=== PATIENT | female | born 1955 | race Caucasian/White ===

== ENCOUNTER → 2020-02-14 14:41 | Outpatient (BNVA) | payer OTHER, SELFPAY | PROVIDERS: Visit Provider Nurse Practitioner Family | DX: Z20.828 Contact with and (suspected) exposure to other viral communicable diseases (principal) | CPT/HCPCS: 87635 ==

== ENCOUNTER 2020-02-18 11:59 | Emergency (ER) | payer OTHER, SELFPAY ==
[2020-02-18] VITALS (7 sets, daily range): BP systolic 159; BP diastolic 97; PULSE 98–104; RESP 14; TEMP 37.1; O2SAT 87–95; BMI 35.5
--- NOTE | 2020-02-18 13:44 | XRR_ITS ---
PROCEDURE INFORMATION: Exam: XR Chest, 1 View Exam date and time: 02/18/2020 1:46 PM Age: 64 years old Clinical indication: Shortness of breath; Additional info: Covid TECHNIQUE: Imaging protocol: XR of the chest Views: 1 view. COMPARISON: No relevant prior studies available. FINDINGS: Lungs: Prominent bronchovascular markings and congestion right lower lobe Pleural space: Unremarkable. No pleural effusion. No pneumothorax. Heart/Mediastinum: Unremarkable. No cardiomegaly. Bones/joints: Unremarkable. XR/XR chest 1V portable [id number] IMPRESSION: 1. Prominent bronchovascular markings and interstitial congestion right lower lobe 2. Otherwise negative chest examination
[2020-02-18 14:06] LABS: Basophils % 0.5 %; Eosinophils % 0.5 %; Hematocrit 48.4 % (37.0-47.0); Hemoglobin 15.8 g/dL (11.5-15.3); Lymphocytes # 2.4 10^3/uL (0.8-4.8); Lymphocytes % 37.3 %; Mean Corpuscular HGB Conc 32.6 g/dL (30.0-36.0); Mean Corpuscular Hemoglobin 30.4 pg (28.0-34.0); Mean Corpuscular Volume 93.1 fL (81-99); Monocytes # 0.4 10^3/uL (0.2-0.9); Monocytes % 5.3 %; Neutrophils # 3.68 10^3/uL (1.8-7.7); Neutrophils % 56.1 %; Nucleated Red Blood Cells % 0 %; Platelet Count 211 10^3/cmm (130-400); Red Cell Distribution Width 13.5 % (12.1-15.1); White Blood Count 6.6 10^3/uL (4.0-10.0)
[2020-02-18 14:15] LABS: D Dimer <= 0.27 ug/mIFEU (0-0.59)
[2020-02-18 14:28] LABS: Lactic Sepsis W/Reflex 1.6 mmol/L (0.5-2.2)
[2020-02-18 14:38] LABS: Procalcitonin 0.03 ng/mL (0-0.5)
[2020-02-18 14:49] LABS: Alanine Aminotransferase 60 U/L (0-33); Albumin Level 4.3 g/dL (3.5-5.2); Alkaline Phosphatase 83 IU/L (35-105); Anion Gap 19.2 (5-19); Aspartate Amino Transferase 34 U/L (0-32); Blood Urea Nitrogen 13 mg/dL (8-23); Calcium 9.6 mg/dL (8.5-10.5); Carbon Dioxide 21 mmol/L (22-29); Chloride 98 mmol/L (98-107); Creatine Phosphokinase 74 U/L (26-192); Globulin 3.7 g/dL (1.3-4.6); Glomerular Filtration Rate 124.2 mL/min (90-130); Glucose 190 mg/dL (65-115); Osmolality Calculated 283 mOsm/kg (285-295); Potassium 4.2 mmol/L (3.5-5.1); Sodium 134 mmol/L (136-145); Total Bilirubin 0.2 mg/dL (0.15-1.2)
[2020-02-18 14:52] LABS: Influenza A by IFA Negative (Negative); Influenza B by IFA Negative (Negative)
--- NOTE | 2020-02-18 16:35 | W.ED.COVID ---
HPI - COVID General: Chief Complaint: COVID symptoms Stated Complaint: COVID+ ON WEDNESDAY, WORSENING SYMPTOMS Time Seen by Provider: 02/18/20 12:46 Source: patient Mode of arrival: ambulatory Limitations: no limitations Triage information: Has fever, cough or shortness of breath. Exposure to COVID + person last 14 days History of Present Illness: HPI Narrative: The patient is a 64 year old diabetic patient who was diagnosed with COVID 19 4 days ago. She states that she has been feeling worse over the last 4 days including worsening cough, shortness of breath. Cough is productive of greenish sputum. She has been checking her oxygen saturation at home and it was in the high 80's so she was advised to come in to the ED to be evaluated. MD complaint: known COVID positive Prior covid testing: yes, results known Prior testing date: 02/14/20 COVID 19 common symptoms: positive fever(s), chills, cough, productive cough, dyspnea, fatigue, body aches and loss of sense of smell and/or taste; negative non-productive cough, headache(s), throat pain, nasal congestion, nausea, vomiting or diarrhea COVID 19 other sytmptoms: positive requiring oxygen and lethargy; negative chest pressure, chest pain, pleuritic pain, requiring more oxygen, respiratory distress, cyanosis, confusion, new neurological complaints or other concerning symptoms Onset (ago): week(s) (1) Severity: severe Pertinent comorbid conditions: diabetes COVID Results: SARS-CoV-2 RNA (RT-PCR) Detected (NOT DETECTED) A 02/14/20 14:41 02/14/20 Review of Systems General: Reports: 10 or more systems reviewed and unremarkable except in HPI and below Const: Reports: fever(s), chills, body aches and fatigue Eyes: Denies: change in vision or blurry vision ENMT: Denies: throat pain or nasal congestion Card: Denies: chest pain Resp: Reports: dyspnea and productive cough; Denies: non-productive cough GI: Denies: nausea, vomiting or diarrhea : Denies: flank pain, difficulty voiding, dysuria, urinary frequency, urinary urgency or urinary hesitancy Musc: Denies: neck pain, back pain or extremity swelling Skin/Breast: Denies: rash, pruritus or erythema Neuro: Denies: headache(s) or confusion Endo: Denies: polyuria, polydipsia or tired all the time Physical Exam Const: COMMON NORMALS: no acute distress, average body habitus, patient oriented x3, no limitations, healthy appearing, alert and well nourished HENMT: COMMON NORMALS: normocephalic, atraumatic and moist oral mucous membranes HEAD & SCALP: normocephalic and atraumatic Neck/C-Spine: COMMON NORMALS: no meningeal signs and no JVD Resp: COMMON NORMALS: normal respiratory effort, No retractions, No use of accessory muscles, clear to auscultation bilaterally and percussion normal AUSCULTATION: clear to auscultation bilaterally PERCUSSION: percussion normal Cardio: COMMON NORMALS: no JVD, regular rate, regular rhythm, S1 normal heart sound present, S2 normal heart sound present, No gallops present (Cardio), No clicks present (Cardio), No murmurs present (Cardio), No rub (Cardio) and Peripheral pulses 2+ throughout RATE: regular rate RHYTHM: regular rhythm HEART SOUNDS: S1 normal heart sound present and S2 normal heart sound present PERIPHERAL PULSES: Peripheral pulses 2+ throughout GI: COMMON NORMALS: Normal to inspection, nondistended, normoactive bowel sounds present, Soft to palpation, non-tender, No hepatosplenomegaly present, no masses and no bruits PALPATION: Yes Soft to palpation and Yes No hepatosplenomegaly present Extremity: COMMON NORMALS: normal to inspection, full ROM, capillary refill normal, no calf tenderness and no pedal edema Neuro: COMMON NORMALS: patient oriented x3 SENSORIUM/ORIENTATION: Yes alert MENINGEAL SIGNS: Yes no meningeal signs Skin: COMMON NORMALS: no rashes or lesions noted, no wounds, turgor normal, no jaundice, no petechiae and no mottling GENERAL SKIN EXAM: no rashes or lesions noted and turgor normal Course ED course: Patient who was recently diagnosed with COVID-19 4 days ago, but she has been ill for about one week. She has been hypoxic at home and in the ED. I advised that she will benefit from hospital admission and systemic steroids. She however declines systemic steroids and absolutely denies hospital admission. She said she would like to speak with her primary care provider tomorrow and follow his advice. Advised her that there is a possibility that she may deteriorate before then and she voiced understanding but insisted on being discharged to follow-up with her primary care provider tomorrow. She however was willing to try oral azithromycin. Because she was hypoxic and needing oxygen, a home O2 eval was done and she qualified for oxygen. She was discharged home on home oxygen. Vital Signs: Vital signs: Vital Signs Temperature 98.7 F 02/18/20 12:21 Pulse Rate 98 02/18/20 16:30 Respiratory Rate 14 02/18/20 12:21 Blood Pressure 159/97 02/18/20 12:21 Pulse Oximetry 93 02/18/20 16:30 MDM - COVID MDM Narrative: Medical decision making narrative: Patient with COVID pneumonia and hypoxia. She is high risk as she is diabetic. I advised hospital admission or at least dexamethasone, but she declined both options and only opted for azithromycin and wants to discuss with her PCP tomorrow before further treatment is accepted by her. She is discharged home on home oxygen and azithromycin. She is to f/u with her PCP in the morning. She is not a candidate for Bamlanivimab as she is requiring oxygen. Medical Records: Attestation: I reviewed the patient's medical records. Lab Data: Attestation: I reviewed the patient's lab results. Labs: Lab Results 02/18/20 02/18/20 02/18/20 Range/Units 13:19 13:19 13:19 WBC 6.6 (4.0-10.0) 10^3/ uL RBC 5.20 (4.1-5.3) 10^6/u L Hgb 15.8 H (11.5-15.3) g/dL Hct 48.4 H (37.0-47.0) % MCV 93.1 (81-99) fL MCH 30.4 (28.0-34.0) pg MCHC 32.6 (30.0-36.0) g/dL RDW 13.5 (12.1-15.1) % Plt Count 211 (130-400) 10^3/c mm MPV 11.0 H (7.4-10.4) fL Neut % (Auto) 56.1 % Lymph % (Auto) 37.3 % [place] % (Auto) 5.3 % Eos % (Auto) 0.5 % Baso % (Auto) 0.5 % Neut # (Auto) 3.68 (1.8-7.7) 10^3/u L Lymph # (Auto) 2.4 (0.8-4.8) 10^3/u L [place] # (Auto) 0.4 (0.2-0.9) 10^3/u L Eos # (Auto) 0.0 (0.0-0.8) 10^3/u L Baso # (Auto) 0.0 (0.0-0.1) 10^3/u L Nucleated RBC % (a uto) 0 % Nucleated RBCs # 0.0 /100WBC D-Dimer <= 0.27 (0-0.59) ug/mIFE U Sodium 134 L (136-145) mmol/L Potassium 4.2 (3.5-5.1) mmol/L Chloride 98 (98-107) mmol/L Carbon Dioxide 21 L (22-29) mmol/L Anion Gap 19.2 H (5-19) BUN 13 (8-23) mg/dL Creatinine 0.5 (0.5-0.9) mg/dL GFR Calculation 124.2 (90-130) mL/min Glucose 190 H (65-115) mg/dL Calculated Osmolal ity 283 L (285-295) mOsm/k g Lactic Acid (0.5-2.2) mmol/L Calcium 9.6 (8.5-10.5) mg/dL Total Bilirubin 0.2 (0.15-1.2) mg/dL AST 34 H (0-32) U/L ALT 60 H (0-33) U/L Alkaline Phosphata se 83 (35-105) IU/L Creatine Kinase 74 (26-192) U/L C-Reactive Protein 6.0 H (0.0-4.9) mg/L Total Protein 8.0 (6.6-8.7) g/dL Albumin 4.3 (3.5-5.2) g/dL Globulin 3.7 (1.3-4.6) g/dL Procalcitonin 0.03 (0-0.5) ng/mL Influenza Type A A g (Negative) Influenza Type B A g (Negative) 02/18/20 02/18/20 Range/Units 13:19 14:18 WBC (4.0-10.0) 10^3/ uL RBC (4.1-5.3) 10^6/u L Hgb (11.5-15.3) g/dL Hct (37.0-47.0) % MCV (81-99) fL MCH (28.0-34.0) pg MCHC (30.0-36.0) g/dL RDW (12.1-15.1) % Plt Count (130-400) 10^3/c mm MPV (7.4-10.4) fL Neut % (Auto) % Lymph % (Auto) % [place] % (Auto) % Eos % (Auto) % Baso % (Auto) % Neut # (Auto) (1.8-7.7) 10^3/u L Lymph # (Auto) (0.8-4.8) 10^3/u L [place] # (Auto) (0.2-0.9) 10^3/u L Eos # (Auto) (0.0-0.8) 10^3/u L Baso # (Auto) (0.0-0.1) 10^3/u L Nucleated RBC % (a uto) % Nucleated RBCs # /100WBC D-Dimer (0-0.59) ug/mIFE U Sodium (136-145) mmol/L Potassium (3.5-5.1) mmol/L Chloride (98-107) mmol/L Carbon Dioxide (22-29) mmol/L Anion Gap (5-19) BUN (8-23) mg/dL Creatinine (0.5-0.9) mg/dL GFR Calculation (90-130) mL/min Glucose (65-115) mg/dL Calculated Osmolal ity (285-295) mOsm/k g Lactic Acid 1.6 (0.5-2.2) mmol/L Calcium (8.5-10.5) mg/dL Total Bilirubin (0.15-1.2) mg/dL AST (0-32) U/L ALT (0-33) U/L Alkaline Phosphata se (35-105) IU/L Creatine Kinase (26-192) U/L C-Reactive Protein (0.0-4.9) mg/L Total Protein (6.6-8.7) g/dL Albumin (3.5-5.2) g/dL Globulin (1.3-4.6) g/dL Procalcitonin (0-0.5) ng/mL Influenza Type A A g Negative (Negative) Influenza Type B A g Negative (Negative) Imaging Data: CXR: Attestation: I personally reviewed and interpreted this imaging study as follows: Radiologist's impression: [address] [address] XRay Report Signed Patient: Brooklyn Maravilla #: [id number] : 6Acct#:[id number] Age/Sex: 64 / FADM Date: 02/18/20 Loc: ERRoom/Bed: Attending Dr: Ordering Provider/Ordering MD: Erlin El MD, [facility] [place] Date of Service: 02/18/20 Procedure(s): XR chest 1V portable [id number] Accession Number(s): [id number] Report Number: [id number] PROCEDURE INFORMATION: Exam: XR Chest, 1 View Exam date and time: 02/18/2020 1:46 PM Age: 64 years old Clinical indication: Shortness of breath; Additional info: Covid TECHNIQUE: Imaging protocol: XR of the chest Views: 1 view. COMPARISON: No relevant prior studies available. FINDINGS: Lungs: Prominent bronchovascular markings and congestion right lower lobe Pleural space: Unremarkable. No pleural effusion. No pneumothorax. Heart/Mediastinum: Unremarkable. No cardiomegaly. Bones/joints: Unremarkable. XR/XR chest 1V portable [id number] IMPRESSION: 1. Prominent bronchovascular markings and interstitial congestion right lower lobe 2. Otherwise negative chest examination Dictated By:Jona Pearson Signed By:Junie Pearson Date/Time:02/18/201428 DD/ 142 COVID Results: SARS-CoV-2 RNA (RT-PCR) Detected (NOT DETECTED) A 02/14/20 14:41 02/14/20 Discharge Plan Discharge Patient Disposition: Home Clinical Impression: Hypoxia, Pneumonia due to 2019 novel coronavirus Condition: Stable Prescriptions: New azithromycin 250 mg tablet See Rx Instructions .ROUTE .COMPLEX Qty: 6 RF: 0 Continued ascorbic acid (vitamin C) 2,000 mg Tablet Extended Release 2,000 - 4,000 mg PO DAILY RF: 0 glimepiride 4 mg tablet 4 mg PO BEDTIME RF: 0 zinc 50 mg Capsule 50 mg PO DAILY RF: 0 pregabalin 75 mg capsule 75 mg PO BEDTIME RF: 0 Vitamin D3 125 mcg (5,000 unit) Tablet 250 mcg PO DAILY RF: 0 Discharge Orders: Discharge Order (Routine); Ordered 02/18/20 Ordered By: Erlin El Other Ambulatory Orders: DME: Oxygen (Order) Location: None Selected Ordered By: Erlin El Referrals: Sebastien Yanez DO [Referring] - 02/19/20 Discharge Diet: Usual diet Discharge Activity: Increase activity as tolerated Patient Instructions: Viral Pneumonia (ED), Hypoxia (ED) Activity Restrictions/Additional Instructions: Return for any new or worsening symptoms. Follow-up with your primary care provider tomorrow for further evaluation. Monitor your oxygen levels at home. If it continues to drop please return for evaluation. Take the medications as prescribed Coding Level of Care Code ED Manager [employer] for [employer] Fwd Exam Comprehensive
== END 2020-02-18 17:30 | disposition home or self-care (01) ==
PROVIDERS: Emergency Provider Family Medicine
DX: U07.1 COVID-19 (principal); J12.89 Other viral pneumonia; R09.02 Hypoxemia
CPT/HCPCS: 12345; 71045; 80053; 82550; 83605; 84145; 85025; 85378; 86140; 87804; 99282; 99283

== ENCOUNTER 2020-02-22 13:49 | Inpatient (IN) | payer MEDICARE, MEDICAID, SELFPAY ==
[2020-02-22] VITALS (8 sets, daily range): BP systolic 112–174; BP diastolic 70–98; PULSE 91–110; RESP 18–24; TEMP 36.5–37.1; O2SAT 88–100; BMI 37.1
--- NOTE | 2020-02-22 14:40 | XR_ITS ---
WS: [id number] Portable AP upright chest, 02/22/2020 Clinical Data: covid 19. hypoxia Comparison: Portable chest, 02/18/2020. Findings: The bilateral opacities have diminished slightly. The heart remains enlarged. No nodules or masses are seen. There are no effusions. No pneumothorax is present. The aortic arch and descending aorta are tortuous. There is a small calcification overlying the left greater tuberosity which may re present calcific bursitis or tendinitis. XR/XR chest 1V portable [id number] Impression: 1. Bilateral pulmonary opacities which may represent pneumonia and these are im proved slightly. 2. Cardiomegaly.
--- NOTE | 2020-02-22 14:44 | ED_ITS ---
HPI - COVID General: Chief Complaint: COVID symptoms Stated Complaint: sob/weakness/fatigue/covid + Feb 15 Time Seen by Provider: 02/22/20 14:08 Source: patient, family and old records reviewed Mode of arrival: ambulatory Limitations: no limitations Triage information: Has fever, cough or shortness of breath . Exposure to COVID + person last 14 days History of Present Illness: HPI Narrative: 64-year-old female patient with a history of diabetes mellitus and was seen in this emergency department 4 days ago for worsening symptoms of COVID-19. She had been ill for about 4 days prior to her last visit and was diagnosed at the primary care provider's office with COVID-19. She was noted to be hypoxic when she was seen in the ER and I attempted to admit her at that time but the patient refused and declined and wanted to see her primary care provider. She was however sent home with home oxygen at 2 L/min. The patient states that she initially felt a little better but from yesterday she started to feel worse again having increasing shortness of breath, body aches, weakness, chills. She does not think she has any fever now. complaint: known COVID positive COVID 19 common symptoms: positive chills, non-productive cough, dyspnea and body aches; negative fever(s), productive cough, headache(s), throat pain, nausea or vomiting COVID Results: SARS-CoV-2 RNA (RT-PCR) Detected (NOT DETECTED) A 02/14/20 14:41 02/14/20 Review of Systems General: Reports: 10 or more systems reviewed and unremarkable except in HPI and below Const: Reports: chills and body aches; Denies: fever(s) Eyes: Denies: change in vision or blurry vision ENMT: Denies: throat pain, enlarged tonsils, odynophagia, hoarseness, mouth pain or swelling of lips/tongue Card: Denies: palpitations, irregular heart rhythm, edema or swelling of feet/ankles Resp: Reports: dyspnea and non-productive cough; Denies: productive cough GI: Denies: abdominal pain, nausea or vomiting : Denies: flank pain, difficulty voiding, dysuria, urinary frequency, urinary urgency or urinary hesitancy Musc: Denies: neck pain, back pain or extremity swelling Skin/Breast: Denies: rash, pruritus or erythema Neuro: Denies: headache(s), numbness in extremities or weakness in extremities Endo: Denies: polyuria, polydipsia or tired all the time Physical Exam Const: COMMON NORMALS: no acute distress, average body habitus, patient oriented x3, no limitations, healthy appearing, alert and well nourished HENMT: COMMON NORMALS: normocephalic, atraumatic and moist oral mucous membranes HEAD & SCALP: normocephalic and atraumatic Eye: COMMON NORMALS: Equal, round and reactive pupils present, EOMs intact bilaterally, conjunctivae normal and no scleral icterus CONJUNCTIVA: Yes conjunctivae normal PUPIL: Yes Equal, round and reactive pupils present Neck/C-Spine: COMMON NORMALS: no meningeal signs and no JVD Resp: COMMON NORMALS: normal respiratory effort, No retractions, No use of accessory muscles, clear to auscultation bilaterally and percussion normal AUSCULTATION: clear to auscultation bilaterally PERCUSSION: percussion normal Cardio: COMMON NORMALS: no JVD, regular rate, regular rhythm, S1 normal heart sound present, S2 normal heart sound present, No gallops present (Cardio), No clicks present (Cardio), No murmurs present (Cardio), No rub (Cardio) and Peripheral pulses 2+ throughout RATE: regular rate RHYTHM: regular rhythm HEART SOUNDS: S1 normal heart sound present and S2 normal heart sound present PERIPHERAL PULSES: Peripheral pulses 2+ throughout GI: COMMON NORMALS: Normal to inspection, nondistended, normoactive bowel sounds present, Soft to palpation, non-tender, No hepatosplenomegaly present, no masses and no bruits PALPATION: Yes Soft to palpation and Yes No hepatosplenomegaly present Extremity: COMMON NORMALS: normal to inspection, full ROM, capillary refill normal, no calf tenderness and no pedal edema Neuro: COMMON NORMALS: patient oriented x3 SENSORIUM/ORIENTATION: Yes alert MENINGEAL SIGNS: Yes no meningeal signs Skin: COMMON NORMALS: no rashes or lesions noted, no wounds, turgor normal, no jaundice, no petechiae and no mottling GENERAL SKIN EXAM: no rashes or lesions noted and turgor normal Course ED course: 64 year old female with COVID pneumonia. She is requiring more oxygen that what she was discharged with a few days ago. She is more hypoxic. She was given the first dose of Remdesivir and dexamethasone in the ED and she is admitted for further evaluation and management. Consultations: Consultation #1: Discussed the patient with Dr. Garcia, hospitalist and he kindly accepted the patient to his service Time: 19:31 Vital Signs: Vital signs: Vital Signs Temperature 97.7 F 02/22/20 21:32 Pulse Rate 91 02/22/20 21:32 Respiratory Rate 22 H 02/22/20 21:32 Blood Pressure 174/98 02/22/20 21:32 Pulse Oximetry 94 02/22/20 21:32 MDM - COVID MDM Narrative: Medical decision making narrative: 64 year old female with worsening hypoxia. She has COVID pneumonia and was discharged from the ED with home oxygen because at the time she did not want to be admitted to the hospital. She has however deteriorated and is requiring more oxygen, now on 5 lpm from 2 lpm to maintain her saturations. She is admitted for further evaluation and management. Medical Records: Attestation: I reviewed the patient's medical records. Lab Data: Attestation: I reviewed the patient's lab results. Labs: Lab Results 02/22/20 02/22/20 02/22/20 Range/Units 14:42 16:00 16:00 WBC 6.8 (4.0-10.0) 10^3/ uL RBC 5.25 (4.1-5.3) 10^6/u L Hgb 15.8 H (11.5-15.3) g/dL Hct 48.4 H (37.0-47.0) % MCV 92.2 (81-99) fL MCH 30.1 (28.0-34.0) pg MCHC 32.6 (30.0-36.0) g/dL RDW 13.2 (12.1-15.1) % Plt Count 201 (130-400) 10^3/c mm MPV 11.8 H (7.4-10.4) fL Neut % (Auto) 56.8 % Lymph % (Auto) 35.5 % Mccormick % (Auto) 5.6 % Eos % (Auto) 1.3 % Baso % (Auto) 0.4 % Neut # (Auto) 3.86 (1.8-7.7) 10^3/u L Lymph # (Auto) 2.4 (0.8-4.8) 10^3/u L Mccormick # (Auto) 0.4 (0.2-0.9) 10^3/u L Eos # (Auto) 0.1 (0.0-0.8) 10^3/u L Baso # (Auto) 0.0 (0.0-0.1) 10^3/u L Nucleated RBC % (a uto) 0 % Nucleated RBCs # 0.0 /100WBC D-Dimer Cancelled Specimen Type Arterial Sample Site Radial, left ABG pH 7.40 (7.35-7.45) ABG pCO2 44.4 (35-45) mmHg ABG pO2 65.0 L (80.0-100.0) mmH g ABG HCO3 27.8 H (22-26) mmol/L ABG Base Excess 2.4 H (-2.0-2.0) mmol/ L Junior Test Pos Hematocrit 47.8 H (37-47) % O2 Delivery Device Nc O2 Liters/Min 5.0 % FiO2 40.0 % Specimen Drawn By Monro Diamond Expert ID Monro Sodium Potassium Chloride Carbon Dioxide Anion Gap BUN Creatinine GFR Calculation Glucose Calculated Osmolal ity Lactic Acid Calcium Total Bilirubin AST ALT Alkaline Phosphata se Troponin T Gen 5 n g/L C-Reactive Protein NT-Pro-B Natriuret Pep Total Protein Albumin Globulin Procalcitonin 02/22/20 02/22/20 02/22/20 Range/Units 16:00 16:00 16:00 WBC (4.0-10.0) 10^3/ uL RBC (4.1-5.3) 10^6/u L Hgb (11.5-15.3) g/dL Hct (37.0-47.0) % MCV (81-99) fL MCH (28.0-34.0) pg MCHC (30.0-36.0) g/dL RDW (12.1-15.1) % Plt Count (130-400) 10^3/c mm MPV (7.4-10.4) fL Neut % (Auto) % Lymph % (Auto) % Mccormick % (Auto) % Eos % (Auto) % Baso % (Auto) % Neut # (Auto) (1.8-7.7) 10^3/u L Lymph # (Auto) (0.8-4.8) 10^3/u L Mccormick # (Auto) (0.2-0.9) 10^3/u L Eos # (Auto) (0.0-0.8) 10^3/u L Baso # (Auto) (0.0-0.1) 10^3/u L Nucleated RBC % (a uto) % Nucleated RBCs # /100WBC D-Dimer Specimen Type Sample Site ABG pH (7.35-7.45) ABG pCO2 (35-45) mmHg ABG pO2 (80.0-100.0) mmH g ABG HCO3 (22-26) mmol/L ABG Base Excess (-2.0-2.0) mmol/ L Junior Test Hematocrit (37-47) % O2 Delivery Device O2 Liters/Min % FiO2 % Specimen Drawn By Diamond Expert ID Sodium Cancelled Potassium Cancelled Chloride Cancelled Carbon Dioxide Cancelled Anion Gap Cancelled BUN Cancelled Creatinine Cancelled GFR Calculation Cancelled Glucose Cancelled Calculated Osmolal ity Cancelled Lactic Acid Cancelled Calcium Cancelled Total Bilirubin Cancelled AST Cancelled ALT Cancelled Alkaline Phosphata se Cancelled Troponin T Gen 5 n g/L Cancelled C-Reactive Protein Cancelled NT-Pro-B Natriuret Pep Cancelled Total Protein Cancelled Albumin Cancelled Globulin Cancelled Procalcitonin Cancelled 02/22/20 02/22/20 02/22/20 Range/Units 16:50 16:50 16:50 WBC (4.0-10.0) 10^3/ uL RBC (4.1-5.3) 10^6/u L Hgb (11.5-15.3) g/dL Hct (37.0-47.0) % MCV (81-99) fL MCH (28.0-34.0) pg MCHC (30.0-36.0) g/dL RDW (12.1-15.1) % Plt Count (130-400) 10^3/c mm MPV (7.4-10.4) fL Neut % (Auto) % Lymph % (Auto) % Mccormick % (Auto) % Eos % (Auto) % Baso % (Auto) % Neut # (Auto) (1.8-7.7) 10^3/u L Lymph # (Auto) (0.8-4.8) 10^3/u L Mccormick # (Auto) (0.2-0.9) 10^3/u L Eos # (Auto) (0.0-0.8) 10^3/u L Baso # (Auto) (0.0-0.1) 10^3/u L Nucleated RBC % (a uto) % Nucleated RBCs # /100WBC D-Dimer 1.27 H Specimen Type Sample Site ABG pH (7.35-7.45) ABG pCO2 (35-45) mmHg ABG pO2 (80.0-100.0) mmH g ABG HCO3 (22-26) mmol/L ABG Base Excess (-2.0-2.0) mmol/ L Junior Test Hematocrit (37-47) % O2 Delivery Device O2 Liters/Min % FiO2 % Specimen Drawn By Diamond Expert ID Sodium 136 Potassium 4.2 Chloride 96 L Carbon Dioxide 24 Anion Gap 20.2 H BUN 16 Creatinine 0.7 GFR Calculation 84.2 L Glucose 129 H Calculated Osmolal ity 285 Lactic Acid 1.5 Calcium 9.3 Total Bilirubin 0.3 AST 44 H ALT 77 H Alkaline Phosphata se 81 Troponin T Gen 5 n g/L C-Reactive Protein 11.5 H NT-Pro-B Natriuret Pep 10 Total Protein 7.2 Albumin 4.2 Globulin 3.0 Procalcitonin 0.03 02/22/20 Range/Units 16:50 WBC (4.0-10.0) 10^3/ uL RBC (4.1-5.3) 10^6/u L Hgb (11.5-15.3) g/dL Hct (37.0-47.0) % MCV (81-99) fL MCH (28.0-34.0) pg MCHC (30.0-36.0) g/dL RDW (12.1-15.1) % Plt Count (130-400) 10^3/c mm MPV (7.4-10.4) fL Neut % (Auto) % Lymph % (Auto) % Mccormick % (Auto) % Eos % (Auto) % Baso % (Auto) % Neut # (Auto) (1.8-7.7) 10^3/u L Lymph # (Auto) (0.8-4.8) 10^3/u L Mccormick # (Auto) (0.2-0.9) 10^3/u L Eos # (Auto) (0.0-0.8) 10^3/u L Baso # (Auto) (0.0-0.1) 10^3/u L Nucleated RBC % (a uto) % Nucleated RBCs # /100WBC D-Dimer Specimen Type Sample Site ABG pH (7.35-7.45) ABG pCO2 (35-45) mmHg ABG pO2 (80.0-100.0) mmH g ABG HCO3 (22-26) mmol/L ABG Base Excess (-2.0-2.0) mmol/ L Junior Test Hematocrit (37-47) % O2 Delivery Device O2 Liters/Min % FiO2 % Specimen Drawn By Diamond Expert ID Sodium Potassium Chloride Carbon Dioxide Anion Gap BUN Creatinine GFR Calculation Glucose Calculated Osmolal ity Lactic Acid Calcium Total Bilirubin AST ALT Alkaline Phosphata se Troponin T Gen 5 n g/L 8 C-Reactive Protein NT-Pro-B Natriuret Pep Total Protein Albumin Globulin Procalcitonin Imaging Data: CXR: Attestation: I personally reviewed and interpreted this imaging study as follows: Radiologist's impression: [address] [address] XRay Report Signed Patient: Brooklyn Maravilla #: [id number] : 6Acct#:[id number] Age/Sex: 64 / FADM Date: 02/22/20 Loc: ERRoom/Bed: Attending Dr: Ordering Provider/Ordering MD: Erlin El MD, [facility] Date of Service: 02/22/20 Procedure(s): XR chest 1V portable [id number] Accession Number(s): [id number] Report Number: [id number] WS: [id number] Portable AP upright chest, 02/22/2020 Clinical Data: covid 19. hypoxia Comparison: Portable chest, 02/18/2020. Findings: The bilateral opacities have diminished slightly. The heart remains enlarged. No nodules or masses are seen. There are no effusions. No pneumothorax is present. The aortic arch and descending aorta are tortuous. There is a small calcification overlying the left greater tuberosity which may represent calcific bursitis or tendinitis. XR/XR chest 1V portable [id number] Impression: 1. Bilateral pulmonary opacities which may represent pneumonia and these are improved slightly. 2. Cardiomegaly. Dictated By:Elizabeth Allen MD Signed By:Elizabeth Allen MDSigned Date/Time:02/22/20 1501 DD/ 1459 CTA Chest: Radiologist's impression: [address] [place] [address] CT Scan Report Signed Patient: Brooklyn Maravilla #: [id number] : [id number]#:[id number] Age/Sex: 64 / FADM Date: 02/22/20 Loc: ERRoom/Bed: Attending Dr: Ordering Provider/Ordering MD: Erlin El MD, [facility] Date of Service: 02/22/20 Procedure(s): CT angio chest PE protcl [id number] Accession Number(s): [id number] Report Number: [id number] PROCEDURE INFORMATION: Exam: CT Angiography Chest With Contrast Exam date and time: 02/22/2020 6:12 PM Age: 64 years old Clinical indication: Shortness of breath; Additional info: SOB, covid + TECHNIQUE: Imaging protocol: Computed tomographic angiography of the chest with intravenous contrast. 3D rendering (Not supervised by radiologist): MIP and/or 3D reconstructed images were created by the technologist. Radiation optimization: All CT scans at this facility use at least one of these dose optimization techniques: automated exposure control; mA and/or kV adjustment per patient size (includes targeted exams where dose is matched to clinical indication); or iterative reconstruction. Contrast material: OMNI 350; Contrast volume: 77 ml; Contrast route: INTRAVENOUS (IV); COMPARISON: CR XR chest 1V portable [id number] 02/22/2020 2:43 PM RADIATION DOSE METRICS: Total DLP (mGy-cm): 576.26 FINDINGS: Pulmonary arteries: There is no pulmonary embolus. Aorta: Unremarkable. No aortic aneurysm. No aortic dissection. Lungs: Multifocal rounded mostly subpleural ground-glass opacities are noted in the lungs. There is no dense lobar consolidation. Pleural space: Unremarkable. No pneumothorax. No pleural effusion. Heart: The heart is enlarged. Mediastinal space: A small hiatal hernia is present. Lymph nodes: Unremarkable. No enlarged lymph nodes. Liver: There is a diffuse decrease in hepatic parenchymal density, consistent with fatty infiltration. Bones/joints: Unremarkable. No acute fracture. Soft tissues: Unremarkable. CT/CT angio chest PE protcl [id number] IMPRESSION: 1. There is no pulmonary embolus. 2. Multifocal rounded mostly subpleural ground-glass opacities are noted in the lungs. Commonly reported imaging features of COVID-19 pneumonia are present. Other processes such as influenza pneumonia and organizing pneumonia, as can be seen with drug toxicity and connective tissue disease, can cause a similar imaging pattern. (Reference: Harlan) REFERENCES: Harlan Li, et al., Radiological Society of [place] Expert Consensus Statement on Reporting Chest CT Findings Related to COVID-19. Endorsed by the Society of Thoracic Radiology, the [employer], and RSNA. Published June 14, 2019. Radiation Dose CTDIVOL = (mGy): DLP = 576.26 (mGy-cm) Dictated By:Anne-Marie Hood Signed By:Max Hood Date/Time:02/22/201900 DD/ 99 COVID Results: SARS-CoV-2 RNA (RT-PCR) Detected (NOT DETECTED) A 02/14/20 14:41 02/14/20 Discharge Plan Discharge Patient Disposition: Admitted As Inpatient Admit Provider: Kong Garcia Clinical Impression: Hypoxia, Pneumonia due to 2019 novel coronavirus Condition: Stable Coding Level of Care Code ED Telesales Professional for Chg Fwd Exam Comprehensive
[2020-02-22 14:56] LABS: Base Excess ABG 2.4 mmol/L (-2.0-2.0); HCO3 ABG 27.8 mmol/L (22-26)
[2020-02-22 14:57] LABS: Arterial Blood Gas Hematocrit 47.8 % (37-47); Blood Gas Drawn By MONRO; Oxygen Device NC
[2020-02-22 15:05] LABS: ABG PCO2 44.4 mmHg (35-45); Blood Gas Allen Test Pos; Blood Gas Operator Identificat MONRO; Blood Gas Sample Site Radial, left; Blood Gas Sample Type Arterial
[2020-02-22 16:17] LABS: Basophils % 0.4 %; Eosinophils # 0.1 10^3/uL (0.0-0.8); Eosinophils % 1.3 %; Hematocrit 48.4 % (37.0-47.0); Hemoglobin 15.8 g/dL (11.5-15.3); Lymphocytes # 2.4 10^3/uL (0.8-4.8); Lymphocytes % 35.5 %; Mean Corpuscular HGB Conc 32.6 g/dL (30.0-36.0); Mean Corpuscular Hemoglobin 30.1 pg (28.0-34.0); Mean Corpuscular Volume 92.2 fL (81-99); Mean Platelet Volume 11.8 fL (7.4-10.4); Monocytes # 0.4 10^3/uL (0.2-0.9); Monocytes % 5.6 %; Neutrophils # 3.86 10^3/uL (1.8-7.7); Neutrophils % 56.8 %; Nucleated Red Blood Cells % 0 %; Platelet Count 201 10^3/cmm (130-400); Red Blood Count 5.25 10^6/uL (4.1-5.3); Red Cell Distribution Width 13.2 % (12.1-15.1); White Blood Count 6.8 10^3/uL (4.0-10.0)
[2020-02-22] MEDS: dexamethasone 4 mg/mL INJ 6 MG IVP (16:30)
[2020-02-22 17:18] LABS: Lactic Sepsis W/Reflex 1.5 mmol/L (0.5-2.2)
[2020-02-22 17:22] LABS: Troponin T (5th) Once 8 ng/L (0-10)
[2020-02-22 17:23] LABS: D Dimer 1.27 ug/mIFEU (0-0.59)
[2020-02-22 17:30] LABS: NT Pro B Type Natriuretic Pept 10 pg/mL (0-125); Procalcitonin 0.03 ng/mL (0-0.5)
[2020-02-22 17:41] LABS: Alanine Aminotransferase 77 U/L (0-33); Albumin Level 4.2 g/dL (3.5-5.2); Alkaline Phosphatase 81 IU/L (35-105); Aspartate Amino Transferase 44 U/L (0-32); Blood Urea Nitrogen 16 mg/dL (8-23); C Reactive Protein 11.5 mg/L (0.0-4.9); Calcium 9.3 mg/dL (8.5-10.5); Carbon Dioxide 24 mmol/L (22-29); Chloride 96 mmol/L (98-107); Creatinine Clr Calc Pharmacy 99.0923; Glomerular Filtration Rate 84.2 mL/min (90-130); Glucose 129 mg/dL (65-115); Osmolality Calculated 285 mOsm/kg (285-295); Sodium 136 mmol/L (136-145); Total Bilirubin 0.3 mg/dL (0.15-1.2); Total Protein 7.2 g/dL (6.6-8.7)
[2020-02-22 17:49] LABS: Anion Gap 20.2 (5-19); Potassium 4.2 mmol/L (3.5-5.1)
--- NOTE | 2020-02-22 17:51 | CTR_ITS ---
PROCEDURE INFORMATION: Exam: CT Angiography Chest With Contrast Exam date and time: 02/22/2020 6:12 PM Age: 64 years old Clinical indication: Shortness of breath; Additional info: SOB, covid + TECHNIQUE: Imaging protocol: Computed tomographic angiography of the chest with intravenous contrast. 3D rendering (Not supervised by radiologist): MIP and/or 3D reconstructed images were created by the technologist. Radiation optimization: All CT scans at this facility use at least one of these dose optimization techniques: automated exposure control; mA and/or kV adjustment per patient size (includes targeted exams where dose is matched to clinical indication); or iterative reconstruction. Contrast material: OMNI 350; Contrast volume: 77 ml; Contrast route: INTRAVENOUS (IV); COMPARISON: CR XR chest 1V portable [id number] 02/22/2020 2:43 PM RADIATION DOSE METRICS: Total DLP (mGy-cm): 576.26 FINDINGS: Pulmonary arteries: There is no pulmonary embolus. Aorta: Unremarkable. No aortic aneurysm. No aortic dissection. Lungs: Multifocal rounded mostly subpleural ground-glass opacities are noted in the lungs. There is no dense lobar consolidation. Pleural space: Unremarkable. No pneumothorax. No pleural effusion. Heart: The heart is enlarged. Mediastinal space: A small hiatal hernia is present. Lymph nodes: Unremarkable. No enlarged lymph nodes. Liver: There is a diffuse decrease in hepatic parenchymal density, consistent with fatty infiltration. Bones/joints: Unremarkable. No acute fracture. Soft tissues: Unremarkable. CT/CT angio chest PE protcl [id number] IMPRESSION: 1. There is no pulmonary embolus. 2. Multifocal rounded mostly subpleural ground-glass opacities are noted in the lungs. Commonly reported imaging features of COVID-19 pneumonia are present. Other processes such as influenza pneumonia and organizing pneumonia, as can be seen with drug toxicity and connective tissue disease, can cause a similar imaging pattern. (Reference: Harlan) REFERENCES: Harlan Li, et al., Radiological Society of [place] Expert Consensus Statement on Reporting Chest CT Findings Related to COVID-19. Endorsed by the Society of Thoracic Radiology, the [employer], and RSNA. Published June 14, 2019. Radiation Dose CTDIVOL = (mGy): DLP = 576.26 (mGy-cm)
[2020-02-22] MEDS: iohexol 350 mg/mL 100 mL Btl IV (18:52)
[2020-02-22] MEDS: morphine 4 mg/mL SDV 1 mL IVP (18:59)
[2020-02-22] MEDS: ondansetron 2 mg/ML SDV 2 mL 4 MG IVP (19:01)
--- NOTE | 2020-02-22 19:41 | PC.NURSE ---
upon entering room at 1925 patient found to be sitting on chair without BP cuff, pulse oximeter, or oxygen she states I will not cooperate unless I am comfortable, commode provided, longer o2 tubing for NC provided patient placed in gown larger BP cuff placed, patient given education on need for cooperation with tx in order to regain health, also on plan for admission, she is agreeable at this time.
--- NOTE | 2020-02-22 21:00 | P.HP_ITS ---
Providers/Chief Complaint Admitting Physician: Kong Garcia MD Chief Complaint: sob/weakness/fatigue/covid + Feb 15 History of Present Illness Brooklyn Maravilla is a 64 year old female with past medical history of diabetes ,was seen in this emergency department 4 days ago for worsening symptoms of COVID-19. She had been ill for about 4 days prior to her last visit and was diagnosed at the primary care provider's office with COVID-19. She was noted to be hypoxic when she was seen in the ER she was asked to be admitted at that time but the patient refused and declined and wanted to see her primary care provider. She was however sent home with home oxygen at 2 L/min. The patient states that she initially felt a little better but from yesterday she started to feel worse again having increasing shortness of breath, body aches, weakness, chills, subjective fever. She denies any loss of smell, taste, appetite. ECA: Course: Imaging study: CTA chest: There is no pulmonary embolus. Multifocal rounded mostly subpleural ground-glass opacities are noted in the lungs. Commonly reported imaging features of COVID-19 pneumonia are present. Pertinent labs: D-dimer: 1.27, CRP: 11.5 troponin: 8 proBNP: 10 WBC: 6.8, H&H: 15.8/48.4 , platelet count: 201 ABG: pH: 7.40, PCO2: 44, PO2: 65 FiO2: 40 %, PF ratio: 65/0.4 ECA medication: She was started on remdesivir as well as dexamethasone Review of Systems Const: Denies: change in appetite or diaphoresis Card: Denies: edema, swelling of feet/ankles or leg pain with exertion Resp: Denies: wheezing or pain on inspiration GI: Denies: abdominal pain, nausea, vomiting, diarrhea or constipation : Denies: flank pain Musc: Denies: back pain, extremity pain or extremity swelling Neuro: Denies: headache(s), difficulty walking or confusion Medications/Allergies Home Medications Medication Instructions Recorded Confirmed Last Taken Type azithromycin See Rx Instructions .ROUTE 02/18/20 02/22/20 02/22/20 09:00 Rx .COMPLEX #6 tab glimepiride 4 mg PO BEDTIME@21 02/18/20 02/22/20 02/21/20 History pregabalin 75 mg PO BEDTIME@02/18/20 02/22/20 02/21/20 History Bitter Melon Gold 500 mg PO DAILY 02/22/20 02/22/20 Unknown History Gymnema 1 tab PO DAILY 02/22/20 02/22/20 Unknown History L-Glutathione 250 mg PO DAILY 02/22/20 02/22/20 Unknown History Moringa Tabs 5,000 mg PO DAILY 02/22/20 02/22/20 Unknown History Quercetin 1,000 mg PO DAILY 02/22/20 02/22/20 Unknown History R-Alpha Lipoic Acid 1 tab PO DAILY 02/22/20 02/22/20 Unknown History Resveratrol Complex 500 mg PO DAILY 02/22/20 02/22/20 Unknown History Turmeric Curcumin 1,500 mg PO DAILY 02/22/20 02/22/20 Unknown History ascorbic acid (vitamin C) [Vitamin 2,000 - 4,000 mg PO DAILY@02/22/20 02/22/20 02/21/20 History C] cholecalciferol (vitamin D3) 5,000 - 10,000 unit PO DAILY@02/22/20 02/22/20 02/21/20 History [Vitamin D3] coenzyme Q10 [CoQ-10] 100 mg PO EVERY OTHER DAY 02/22/20 02/22/20 Unknown History vitamin B complex 1 tab PO DAILY@02/22/20 02/22/20 Unknown History vitamin E 100 unit PO DAILY@02/22/20 02/22/20 Unknown History zinc 50 mg PO DAILY@02/22/20 02/22/20 02/21/20 History Allergies Allergy/AdvReac Type Severity Reaction Status Date / Time No Known Allergies Allergy Verified 02/22/20 15:01 Vitals/I&O/Wt Last Vital Signs Temp 98.4 F 02/22/20 20:57 Pulse 96 02/22/20 20:57 Resp 18 02/22/20 20:57 BP 164/72 02/22/20 20:57 Pulse Ox 95 02/22/20 20:57 Weight last 48 hrs Weight 104.326 kg Physical Exam Const: COMMON NORMALS: patient oriented x3 HENMT: COMMON NORMALS: normocephalic, atraumatic, hearing grossly normal bilaterally and external ears normal HEAD & SCALP: normocephalic and atraumatic EXTERNAL EAR: Yes external ears normal Eye: COMMON NORMALS: no scleral icterus GENERAL EYE: appearance normal, both eyes and all related structures Chest: COMMONS NORMALS: normal inspection of the chest CHEST: Yes Symmetrical chest wall rise Resp: COMMON NORMALS: normal respiratory effort and clear to auscultation bilaterally EFFORT & INSPECTION: Yes symmetric chest movement AUSCULTATION : clear to auscultation bilaterally Cardio: COMMON NORMALS: regular rate, regular rhythm, S1 normal heart sound present, S2 normal heart sound present, No gallops present (Cardio), No murmurs present (Cardio), No rub (Cardio) and Peripheral pulses 2+ throughout RATE: regular rate RHYTHM: regular rhythm HEART SOUNDS: S1 normal heart sound present and S2 normal heart sound present PERIPHERAL PULSES: Peripheral pulses 2+ throughout GI: COMMON NORMALS: Normal to inspection, nondistended, normoactive bowel sounds present, Soft to palpation, non-tender, No hepatosplenomegaly present and no masses AUSCULTATION: Yes normoactive bowel sounds PALPATION: Yes Soft to palpation and Yes No hepatosplenomegaly present RECTAL EXAM: deferred Extremity: COMMON NORMALS: no clubbing, cyanosis or edema and no pedal edema Neuro: COMMON NORMALS: patient oriented x3 Data : 02/22/20 16:00 02/22/20 16:50 A&P Assessment and plan (1) Pneumonia due to COVID-19 virus: Currently on Covid protocol (REM, DEXA) Ceftriaxone 1 g IV daily Azithromycin 500 mg IV day Supplemental oxygen as needed Trend cytokine Gretel markers (namely D-dimer, ESR CRP, ferritin, IL-6) Status: Acute (2) Diabetes: Low-dose sliding scale insulin Fingerstick glucose Diabetic diet Status: Acute Additional A&P Information dvt ppx: Lovenox 40 mg SC daily Code status: Full code Disposition: Home Attestations Medical Necessity Statement*: Patient needs to be in hospital for management of Covid pneumonia. Anticipated length of stay greater than 2 midnights. Coding Level of Care Code Acute English Language Arts Teacher for Cristal Lowe Diagnoses Pneumonia due to COVID-19 virus U07.1; J12.89 Diabetes E11.9
[2020-02-22 21:53] LABS: Glucose Point of Care 276 mg/dL (70-110)
[2020-02-22] MEDS: acetaminophen 325 mg Tablet 650 MG PO (22:21)
[2020-02-22] MEDS: pregabalin 75 mg Capsule PO (22:21)
[2020-02-22] MEDS: enoxaparin 40 mg/0.4 mL Syringe SUBCUT (22:23)
[2020-02-22] MEDS: cefTRIAXone 1,000 MG in sodium chloride 0.9% (plus) 50 ML 100 MG IV (22:55)
[2020-02-22] MEDS: azithromycin 500 MG in sodium chloride 0.9% 250 ML 250 MG IV (23:21)
[2020-02-22] MEDS: sodium chloride 0.9% (100 ml) 100 ML 30 ML (23:21)
[2020-02-23] VITALS (11 sets, daily range): BP systolic 111–153; BP diastolic 67–87; PULSE 74–91; RESP 17–22; TEMP 36.5–36.7; O2SAT 90–96
--- NOTE | 2020-02-23 01:33 | PC.NURSE ---
Physician Contact Nurse noted hives on abdomen and right eyelid during physical assessment. Patient state she noticed the hives yesterday. She recently completed a course of azithromycin, but states she has not had a reaction to that medication in the past. Itching is worsening. Verbal order obtained from Dr. Garcia for benadryl po.
[2020-02-23] MEDS: diphenhydrAMINE 50 mg Capsule PO (02:14)
--- NOTE | 2020-02-23 06:00 | ECG_ITS ---
[facility] Test Date: 2020-02-23 Pat Name: Brooklyn Maravilla Department: Room: 269 Gender: Female Concrete Carpenter: : 1955 Requested By: Kong Garcia Order Number: [id number] Khan MD: Mayi Huff M.D. Measurements Intervals [place] Rate: 73 P: 55 [place]: 194 QRS: 25 QRSD: 101 T: 35 QT: 392 QTc: 434 Interpretive Statements SINUS RHYTHM No previous ECG available for comparison Electronically Signed On 02-23-2020 19:30:47 BUSINESS OFFICE MANAGER by Mayi Huff M.D. [id number]
[2020-02-23 06:12] LABS: Basophils % 0.3 %; Hematocrit 42.8 % (37.0-47.0); Hemoglobin 13.8 g/dL (11.5-15.3); Lymphocytes # 1.3 10^3/uL (0.8-4.8); Mean Corpuscular HGB Conc 32.2 g/dL (30.0-36.0); Mean Platelet Volume 10.9 fL (7.4-10.4); Monocytes # 0.2 10^3/uL (0.2-0.9); Monocytes % 4.3 %; Neutrophils # 2.01 10^3/uL (1.8-7.7); Neutrophils % 58.1 %; Nucleated Red Blood Cells % 0 %; Platelet Count 204 10^3/cmm (130-400); White Blood Count 3.5 10^3/uL (4.0-10.0)
[2020-02-23 06:31] LABS: D Dimer 0.88 ug/mIFEU (0-0.59)
[2020-02-23 06:46] LABS: Alanine Aminotransferase 62 U/L (0-33); Albumin Level 3.8 g/dL (3.5-5.2); Alkaline Phosphatase 68 IU/L (35-105); Anion Gap 12.4 (5-19); Aspartate Amino Transferase 33 U/L (0-32); Blood Urea Nitrogen 14 mg/dL (8-23); Carbon Dioxide 28 mmol/L (22-29); Chloride 103 mmol/L (98-107); Creatinine Clr Calc Pharmacy 149.6366; Glomerular Filtration Rate 124.2 mL/min (90-130); Glucose 194 mg/dL (65-115); Magnesium 1.9 mg/dL (1.7-2.3); Osmolality Calculated 294 mOsm/kg (285-295); Phosphorus 3.4 mg/dL (2.5-4.5); Potassium 4.4 mmol/L (3.5-5.1); Sodium 139 mmol/L (136-145); Thyroid Stimulating Hormone 0.94 uIU/mL (0.27-4.20); Total Bilirubin 0.2 mg/dL (0.15-1.2); Total Protein 6.8 g/dL (6.6-8.7)
[2020-02-23 06:52] LABS: INR 0.96 (0.8-1.2); Partial Thromboplastin Time 29.5 SECONDS (23.9-36.7)
[2020-02-23 06:59] LABS: Glucose Point of Care 157 mg/dL (70-110)
[2020-02-23] MEDS: zinc gluconate 50 mg Tablet PO (08:29)
[2020-02-23] MEDS: cholecalciferol (vitamin D3) 5,000 unit Tablet PO (08:29)
[2020-02-23] MEDS: famotidine 20 mg Tablet PO ×2 (08:29→17:10)
[2020-02-23 11:57] LABS: Glucose Point of Care 216 mg/dL (70-110)
--- NOTE | 2020-02-23 13:23 | P.PN_ITS ---
Subjective Subjective: Interval history: Patient was examined this morning, she tells me that she is overall feeling better, is on 2 L, would like to have some probiotics Vitals/I&O/Wt Last Vital Signs Temp 98.1 F 02/23/20 12:00 Pulse 79 02/23/20 12:00 Resp 18 02/23/20 12:00 BP 145/76 02/23/20 12:00 Pulse Ox 95 02/23/20 12:00 02/22/20 02/23/20 02/23/20 22:59 06:59 14:59 Intake Total 360 / 360 Output Total 120 / 120 1000 / 1120 400 / 400 Balance -120 / -120 -1000 / -1120 -40 / -40 Weight last 48 hrs Weight 119.522 kg Weight 104.326 kg Physical Exam Const: COMMON NORMALS: no acute distress and patient oriented x3 HENMT: COMMON NORMALS: normocephalic HEAD & SCALP: normocephalic Neck/C-Spine: COMMON NORMALS: no JVD Resp: COMMON NORMALS: normal respiratory effort, No retractions and No use of accessory muscles AUSCULTATION: wheezes Cardio: COMMON NORMALS: no JVD, regular rate, regular rhythm, S1 normal heart sound present and S2 normal heart sound present RATE: regular rate RHYTHM: regular rhythm HEART SOUNDS: S1 normal heart sound present and S2 normal heart sound present GI: COMMON NORMALS: Normal to inspection, nondistended, normoactive bowel sounds present, Soft to palpation, non-tender, No hepatosplenomegaly present, no masses and no bruits PALPATION: Yes Soft to palpation and Yes No hepatosplenomegaly present Extremity: COMMON NORMALS: capillary refill normal, no clubbing, cyanosis or edema, no calf tenderness and no pedal edema Neuro: COMMON NORMALS: patient oriented x3 Psych: COMMON NORMALS: mental status grossly normal Data : 02/23/20 05:52 02/23/20 05:52 A&P Assessment and plan (1) Pneumonia due to COVID-19 virus: Continue remdesivir Continue Decadron Monitor QTC daily, last QTC 434 ms Ceftriaxone 1 g IV daily Azithromycin 500 mg IV day Vitamin C, zinc Supplemental oxygen as needed Start probiotics Monitor blood sugars carefully as she is on Decadron Trend cytokine Gretel markers (namely D-dimer, ESR CRP, ferritin, IL-6) Lovenox for DVT prophylaxis, hypercoagulability prophylaxis, if her oxygen requirements increase or she becomes more short of breath will expand to full dose hypercoagulability Status: Acute (2) Diabetes: Low-dose sliding scale insulin Fingerstick glucose Diabetic diet Status: Acute Additional A&P Information dvt ppx: Lovenox 40 mg SC daily Code status: Full code Disposition: Home Attestations Medical Necessity Statement*: Patient requires hospitalization due to pneumonia secondary to COVID-19 Coding Level of Care Code Acute Patternmaker Pressure Cast for Cristal Lowe Diagnoses Pneumonia due to COVID-19 virus U07.1; J12.89 Diabetes E11.9
[2020-02-23 16:45] LABS: Glucose Point of Care 224 mg/dL (70-110)
[2020-02-23] MEDS: lactobacillus 1 Tablet 1 TAB PO (17:10)
[2020-02-23] MEDS: ascorbic acid 500 mg Tablet PO (17:10)
[2020-02-23] MEDS: fluconazole 100 mg Tablet 150 MG PO (19:13)
[2020-02-23 22:00] LABS: Glucose Point of Care 171 mg/dL (70-110)
[2020-02-23] MEDS: cefTRIAXone 1,000 MG in sodium chloride 0.9% (plus) 50 ML 100 MG IV (22:03)
[2020-02-23] MEDS: dexamethasone 4 mg/mL INJ 6 MG IVP (22:05)
[2020-02-23] MEDS: pregabalin 75 mg Capsule PO (22:10)
[2020-02-23] MEDS: enoxaparin 40 mg/0.4 mL Syringe SUBCUT (22:11)
[2020-02-23] MEDS: azithromycin 500 MG in sodium chloride 0.9% 250 ML 250 MG IV (23:40)
[2020-02-24] VITALS (10 sets, daily range): BP systolic 122–150; BP diastolic 71–87; PULSE 70–88; RESP 16–20; TEMP 36.4–36.7; O2SAT 91–95
--- NOTE | 2020-02-24 05:42 | PC.NURSE ---
SHIFT SUMMARY: THE PATIENT CONTINUES TO REQUIRE 4 LITERS OF OXYGEN NASAL CANULA. V/S WNL. DENIES ANY COMPLAINTS OF SOB OR DIFFICULTY BREATHING.
[2020-02-24 06:41] LABS: Basophils % 0.2 %; Hematocrit 42.2 % (37.0-47.0); Hemoglobin 13.4 g/dL (11.5-15.3); Lymphocytes % 18.3 %; Mean Corpuscular HGB Conc 31.8 g/dL (30.0-36.0); Mean Corpuscular Hemoglobin 29.6 pg (28.0-34.0); Mean Corpuscular Volume 93.2 fL (81-99); Mean Platelet Volume 10.9 fL (7.4-10.4); Monocytes # 0.1 10^3/uL (0.2-0.9); Monocytes % 1.5 %; Neutrophils # 4.18 10^3/uL (1.8-7.7); Neutrophils % 79.4 %; Nucleated Red Blood Cells % 0 %; Platelet Count 222 10^3/cmm (130-400); Red Blood Count 4.53 10^6/uL (4.1-5.3); Red Cell Distribution Width 13.1 % (12.1-15.1); White Blood Count 5.3 10^3/uL (4.0-10.0)
[2020-02-24 06:42] LABS: Alanine Aminotransferase 54 U/L (0-33); Albumin Level 3.9 g/dL (3.5-5.2); Alkaline Phosphatase 67 IU/L (35-105); Aspartate Amino Transferase 25 U/L (0-32); Blood Urea Nitrogen 18 mg/dL (8-23); Calcium 9.1 mg/dL (8.5-10.5); Carbon Dioxide 25 mmol/L (22-29); Chloride 102 mmol/L (98-107); Glomerular Filtration Rate 100.6 mL/min (90-130); Glucose 307 mg/dL (65-115); Magnesium 1.9 mg/dL (1.7-2.3); Osmolality Calculated 301 mOsm/kg (285-295); Phosphorus 3.8 mg/dL (2.5-4.5); Sodium 139 mmol/L (136-145); Total Bilirubin 0.2 mg/dL (0.15-1.2); Total Protein 6.9 g/dL (6.6-8.7)
[2020-02-24 06:49] LABS: Anion Gap 16.8 (5-19); Potassium 4.8 mmol/L (3.5-5.1)
--- NOTE | 2020-02-24 07:00 | XRR_ITS ---
PROCEDURE INFORMATION: Exam: XR Chest, 1 View Exam date and time: 02/24/2020 7:08 AM Age: 64 years old Clinical indication: Shortness of breath; Additional info: SOB TECHNIQUE: Imaging protocol: XR of the chest Views: 1 view. COMPARISON: CR XR chest 1V portable [id number] 02/22/2020 2:43 PM FINDINGS: Lungs: Bilateral interstitial pulmonary infiltrates are present along with patchy airspace consolidation in the left base. The left basilar infiltrates have become more prominent than on previous study and is consistent with pneumonia. Pleural space: Unremarkable. No pleural effusion. No pneumothorax. Heart/Mediastinum: Unremarkable. No cardiomegaly. Bones/joints: Unremarkable. XR/XR chest 1V portable [id number] IMPRESSION: Bilateral interstitial hazy infiltrates and patchy left basilar consolidation consistent with pneumonia. The left basilar infiltrate is more prominent than on previous study.
[2020-02-24 07:37] LABS: C Reactive Protein 5.2 mg/L (0.0-4.9)
[2020-02-24 07:48] LABS: Procalcitonin 0.02 ng/mL (0-0.5)
[2020-02-24 08:00] LABS: Creatine Phosphokinase 119 U/L (26-192)
[2020-02-24] MEDS: cholecalciferol (vitamin D3) 5,000 unit Tablet PO (08:15)
[2020-02-24] MEDS: lactobacillus 1 Tablet 1 TAB PO ×2 (08:15→17:37)
[2020-02-24] MEDS: famotidine 20 mg Tablet PO ×2 (08:16→17:37)
[2020-02-24] MEDS: ascorbic acid 500 mg Tablet PO ×2 (08:16→17:37)
[2020-02-24] MEDS: zinc gluconate 50 mg Tablet PO (08:16)
[2020-02-24] MEDS: FUROsemide 10 mg/mL SDV 4mL 40 MG IVP (10:06)
[2020-02-24 10:51] LABS: Glucose Point of Care 347 mg/dL (70-110)
--- NOTE | 2020-02-24 11:07 | PM.PN ---
Subjective Subjective: Interval history: Patient was examined this morning, she tells me she is doing well, but she gets quite winded tired and fatigued after minimal exertion such as getting up to use the bathroom Vitals/I&O/Wt Last Vital Signs Temp 97.9 F 02/24/20 08:00 Pulse 74 02/24/20 08:43 Resp 20 H 02/24/20 08:40 BP 149/87 02/24/20 08:00 Pulse Ox 93 02/24/20 08:40 02/23/20 02/24/20 02/24/20 22:59 06:59 14:59 Intake Total 240 / 600 240 / 840 720 / 720 Output Total 50 / 450 500 / 950 Balance 190 / 150 -260 / -110 720 / 720 Weight last 48 hrs Weight 122.924 kg Weight 119.522 kg Weight 104.326 kg Physical Exam Const: COMMON NORMALS: no acute distress and patient oriented x3 HENMT: COMMON NORMALS: normocephalic HEAD & SCALP: normocephalic Neck/C-Spine: COMMON NORMALS: no JVD Resp: COMMON NORMALS: normal respiratory effort, No retractions and No use of accessory muscles AUSCULTATION: crackles Cardio: COMMON NORMALS: no JVD, regular rate, regular rhythm, S1 normal heart sound present and S2 normal heart sound present RATE: regular rate RHYTHM: regular rhythm HEART SOUNDS: S1 normal heart sound present and S2 normal heart sound present GI: COMMON NORMALS: Normal to inspection, nondistended, normoactive bowel sounds present, Soft to palpation, non-tender, No hepatosplenomegaly present, no masses and no bruits PALPATION: Yes Soft to palpation and Yes No hepatosplenomegaly present Extremity: COMMON NORMALS: capillary refill normal, no clubbing, cyanosis or edema, no calf tenderness and no pedal edema Neuro: COMMON NORMALS: patient oriented x3 Psych: COMMON NORMALS: mental status grossly normal Data : 02/24/20 06:35 02/24/20 05:15 A&P Assessment and plan (1) Pneumonia due to COVID-19 virus: Continue remdesivir Continue Decadron Monitor QTC daily, last QTC 434 ms Ceftriaxone 1 g IV daily Azithromycin 500 mg IV day Vitamin C, zinc Supplemental oxygen as needed Start probiotics Monitor blood sugars carefully as she is on Decadron Trend cytokine Gretel markers (namely D-dimer, ESR CRP, ferritin, IL-6) As her oxygen requirements have increased, she feels continually short of breath, will expand Lovenox coverage to full dose, monitor hemoglobin closely 1 dose of Lasix today Status: Acute (2) Diabetes: Low-dose sliding scale insulin Fingerstick glucose Diabetic diet Status: Acute Additional A&P Information dvt ppx: Full dose Lovenox Code status: Full code Disposition: Home Plan for today monitor respiratory status closely, expand Lovenox to full dose, 1 dose of Lasix, get up out of bed, aggressive pulmonary toilet Attestations Medical Necessity Statement*: Patient requires hospitalization for pneumonia secondary COVID-19 Coding Level of Care Code Acute Porcelain Enamel Repairer for alan Lowe Diagnoses Pneumonia due to COVID-19 virus U07.1; J12.89 Diabetes E11.9
[2020-02-24] MEDS: enoxaparin 120 mg/0.8 mL Syringe SUBCUT ×2 (11:29→23:14)
[2020-02-24] MEDS: benzonatate 100 mg Capsule PO ×2 (11:49→20:30)
[2020-02-24] MEDS: guaiFENesin-dextromethorphan UDC 10 mL PO (11:49)
[2020-02-24 16:47] LABS: Glucose Point of Care 266 mg/dL (70-110)
[2020-02-24] MEDS: dexamethasone 4 mg/mL INJ 6 MG IVP (19:45)
[2020-02-24 19:54] LABS: Glucose Point of Care 277 mg/dL (70-110)
[2020-02-24] MEDS: acetaminophen 325 mg Tablet 650 MG PO (20:29)
[2020-02-24] MEDS: simethicone 80 mg Chew PO (20:29)
[2020-02-24] MEDS: pregabalin 75 mg Capsule PO (20:30)
[2020-02-24] MEDS: cefTRIAXone 1,000 MG in sodium chloride 0.9% (plus) 50 ML 100 MG IV (20:30)
[2020-02-24] MEDS: azithromycin 500 MG in sodium chloride 0.9% 250 ML 250 MG IV (21:16)
[2020-02-25] VITALS (9 sets, daily range): BP systolic 123–167; BP diastolic 75–89; PULSE 62–92; RESP 16–20; TEMP 36.4–37.2; O2SAT 91–96
[2020-02-25 05:42] LABS: Basophils % 0.2 %; Hematocrit 40.2 % (37.0-47.0); Hemoglobin 12.9 g/dL (11.5-15.3); Lymphocytes # 1.2 10^3/uL (0.8-4.8); Lymphocytes % 21.3 %; Mean Corpuscular HGB Conc 32.1 g/dL (30.0-36.0); Mean Corpuscular Hemoglobin 30.6 pg (28.0-34.0); Mean Corpuscular Volume 95.5 fL (81-99); Mean Platelet Volume 11.8 fL (7.4-10.4); Monocytes # 0.1 10^3/uL (0.2-0.9); Monocytes % 2.6 %; Neutrophils # 4.08 10^3/uL (1.8-7.7); Neutrophils % 75.3 %; Nucleated Red Blood Cells % 0 %; Platelet Count 232 10^3/cmm (130-400); Red Blood Count 4.21 10^6/uL (4.1-5.3); Red Cell Distribution Width 13.3 % (12.1-15.1); White Blood Count 5.4 10^3/uL (4.0-10.0)
--- NOTE | 2020-02-25 06:00 | ECG_ITS ---
[facility] Test Date: 2020-02-25 Pat Name: Brooklyn Maravilla Department: Room: 269 Gender: Female Foreman/Project Manager: : 1955 Requested By: Keshav Alejandro Order Number: [id number] Reading MD: SAVANNA CHAMORRO Measurements Intervals [place] Rate: 68 P: 52 [place]: 192 QRS: 25 QRSD: 100 T: 30 QT: 379 QTc: 405 Interpretive Statements SINUS RHYTHM Compared to ECG 02/23/2020 06:22:03 No significant changes Electronically Signed On 02-25-2020 15:48:19 AUTO SERVICE MECHANIC by SAVANNA CHAMORRO [id number]
[2020-02-25 06:44] LABS: Alanine Aminotransferase 53 U/L (0-33); Albumin Level 3.7 g/dL (3.5-5.2); Alkaline Phosphatase 62 IU/L (35-105); Anion Gap 15.8 (5-19); Aspartate Amino Transferase 22 U/L (0-32); Blood Urea Nitrogen 19 mg/dL (8-23); Calcium 8.9 mg/dL (8.5-10.5); Carbon Dioxide 28 mmol/L (22-29); Chloride 102 mmol/L (98-107); Globulin 2.5 g/dL (1.3-4.6); Glomerular Filtration Rate 100.6 mL/min (90-130); Glucose 297 mg/dL (65-115); Magnesium 1.9 mg/dL (1.7-2.3); Osmolality Calculated 305 mOsm/kg (285-295); Phosphorus 3.9 mg/dL (2.5-4.5); Potassium 4.8 mmol/L (3.5-5.1); Sodium 141 mmol/L (136-145); Total Bilirubin 0.2 mg/dL (0.15-1.2); Total Protein 6.2 g/dL (6.6-8.7)
[2020-02-25 06:45] LABS: C Reactive Protein 3.7 mg/L (0.0-4.9)
[2020-02-25 06:49] LABS: Glucose Point of Care 247 mg/dL (70-110)
[2020-02-25] MEDS: zinc gluconate 50 mg Tablet PO (08:01)
[2020-02-25] MEDS: guaiFENesin-dextromethorphan UDC 10 mL PO (08:01)
[2020-02-25] MEDS: famotidine 20 mg Tablet PO ×2 (08:01→17:59)
[2020-02-25] MEDS: benzonatate 100 mg Capsule PO (08:01)
[2020-02-25] MEDS: ascorbic acid 500 mg Tablet PO ×2 (08:01→17:59)
[2020-02-25] MEDS: lactobacillus 1 Tablet 1 TAB PO ×2 (08:01→17:59)
[2020-02-25] MEDS: cholecalciferol (vitamin D3) 5,000 unit Tablet PO (08:01)
[2020-02-25 08:55] LABS: Procalcitonin 0.04 ng/mL (0-0.5)
[2020-02-25 09:06] LABS: Creatine Phosphokinase 104 U/L (26-192)
--- NOTE | 2020-02-25 10:43 | PC.SOCIAL ---
IMM Update Pg. 2 of IMM updated with patient over the phone who verbalized understanding.
--- NOTE | 2020-02-25 10:49 | PM.PN ---
Subjective Subjective: Interval history: This morning patient was examined, she tells me that she is doing well, still on 4 L, she is just feeling quite anxious, she wants to go home, but she knows that she needs to be here, she is hoping to get something to settle her nerves, overall she feels better, but still feels a bit short of breath and weak with exertion Vitals/I&O/Wt Last Vital Signs Temp 97.8 F 02/25/20 08:00 Pulse 92 02/25/20 09:06 Resp 18 02/25/20 09:06 BP 150/83 02/25/20 08:00 Pulse Ox 94 02/25/20 09:06 02/24/20 02/25/20 02/25/20 22:59 06:59 14:59 Intake Total 1140 / 2100 120 / 2220 400 / 400 Output Total 1200 / 3000 700 / 700 Balance -60 / -900 120 / -780 -300 / -300 Weight last 48 hrs Weight 121.79 kg Weight 122.924 kg Physical Exam Const: COMMON NORMALS: no acute distress and patient oriented x3 HENMT: COMMON NORMALS: normocephalic HEAD & SCALP: normocephalic Neck/C-Spine: COMMON NORMALS: no JVD Resp: COMMON NORMALS: normal respiratory effort, No retractions, No use of accessory muscles and clear to auscultation bilaterally AUSCULTATION: clear to auscultation bilaterally Cardio: COMMON NORMALS: no JVD, regular rate, regular rhythm, S1 normal heart sound present and S2 normal heart sound present RATE: regular rate RHYTHM: regular rhythm HEART SOUNDS: S1 normal heart sound present and S2 normal heart sound present GI: COMMON NORMALS: Normal to inspection, nondistended, normoactive bowel sounds present, Soft to palpation, non-tender, No hepatosplenomegaly present, no masses and no bruits PALPATION: Yes Soft to palpation and Yes No hepatosplenomegaly present Extremity: COMMON NORMALS: capillary refill normal, no clubbing, cyanosis or edema, no calf tenderness and no pedal edema Neuro: COMMON NORMALS: patient oriented x3 Psych: COMMON NORMALS: mental status grossly normal Data : 02/25/20 05:00 02/25/20 05:00 A&P Assessment and plan (1) Pneumonia due to COVID-19 virus: Continue remdesivir Continue Decadron Monitor QTC daily, last QTC 405 ms Ceftriaxone 1 g IV daily Azithromycin 500 mg IV day Vitamin C, zinc Supplemental oxygen as needed Start probiotics Monitor blood sugars carefully as she is on Decadron Klonopin 0.25 twice daily for anxiety Trend cytokine Gretel markers (namely D-dimer, ESR CRP, ferritin, IL-6) Full dose Lovenox Hold off on Lasix today Status: Acute (2) Diabetes: Low-dose sliding scale insulin Fingerstick glucose Diabetic diet Status: Acute Additional A&P Information dvt ppx: Full dose Lovenox Code status: Full code Disposition: Home Plan for today monitor respiratory status closely, aggressive pulmonary toilet, get up out of bed, continue Decadron, continue antibiotics, continue remdesivir Attestations Medical Necessity Statement*: Patient requires hospitalization for COVID-19 pneumonia, Time Spent in Patient Care: Greater than 35 minutes (>than 50% of time spent in counselling and/or direct pt care on unit). Coding Level of Care Code Acute Speaking Unit Assembler for Cristal Lowe Diagnoses Pneumonia due to COVID-19 virus U07.1; J12.89 Diabetes E11.9
[2020-02-25] MEDS: amlodipine 10 mg Tablet PO (11:26)
[2020-02-25] MEDS: enoxaparin 120 mg/0.8 mL Syringe SUBCUT ×2 (11:26→23:02)
[2020-02-25 11:30] LABS: Glucose Point of Care 281 mg/dL (70-110)
[2020-02-25 17:18] LABS: Glucose Point of Care 269 mg/dL (70-110)
[2020-02-25 20:22] LABS: Glucose Point of Care 282 mg/dL (70-110)
[2020-02-25] MEDS: pregabalin 75 mg Capsule PO (20:37)
[2020-02-25] MEDS: CLONazepam 0.5 mg Tablet 0.25 MG PO (20:37)
[2020-02-25] MEDS: dexamethasone 4 mg/mL INJ 6 MG IVP (21:16)
[2020-02-25] MEDS: cefTRIAXone 1,000 MG in sodium chloride 0.9% (plus) 50 ML 100 MG IV (22:34)
[2020-02-25] MEDS: azithromycin 500 MG in sodium chloride 0.9% 250 ML 250 MG IV (23:02)
[2020-02-26] VITALS (11 sets, daily range): BP systolic 144–162; BP diastolic 77–90; PULSE 70–82; RESP 17–20; TEMP 36.4–36.8; O2SAT 94–98
[2020-02-26 06:34] LABS: Glucose Point of Care 262 mg/dL (70-110)
[2020-02-26 06:57] LABS: C Reactive Protein 2.6 mg/L (0.0-4.9)
[2020-02-26 07:05] LABS: Creatine Phosphokinase 89 U/L (26-192)
[2020-02-26] MEDS: albuterol 8 gm MDI 2 PUFF INHALATION (07:35)
[2020-02-26 08:04] LABS: Procalcitonin 0.02 ng/mL (0-0.5)
[2020-02-26] MEDS: ascorbic acid 500 mg Tablet PO ×2 (08:33→18:06)
[2020-02-26] MEDS: cholecalciferol (vitamin D3) 5,000 unit Tablet PO (08:33)
[2020-02-26] MEDS: lactobacillus 1 Tablet 1 TAB PO ×2 (08:34→18:06)
[2020-02-26] MEDS: zinc gluconate 50 mg Tablet PO (08:34)
[2020-02-26] MEDS: famotidine 20 mg Tablet PO ×2 (08:34→18:06)
--- NOTE | 2020-02-26 09:46 | PC.NURSE ---
pt refused her norvasc this am due to her saying she uses herbal supplements to regulate her blood pressure at home and that her primary care knows this and it usually runs a little high. i informed the pt on importance of taking blood pressure medications and risks of having a high blood pressure and it not being controlled, pt stated she is aware.
[2020-02-26 11:18] LABS: Glucose Point of Care 252 mg/dL (70-110)
[2020-02-26] MEDS: enoxaparin 120 mg/0.8 mL Syringe SUBCUT (12:03)
[2020-02-26 16:52] LABS: Glucose Point of Care 222 mg/dL (70-110)
--- NOTE | 2020-02-26 17:08 | PM.PN ---
Subjective Subjective: Interval history: stable 02 requirements at 4lpm today, reports feeling congested in her chest today, denies chest pain or dyspnea , afebrile, hemodynamically stable Medications: Reviewed: Yes Vitals/I&O/Wt Last Vital Signs Temp 97.7 F 02/26/20 16:00 Pulse 77 02/26/20 16:00 Resp 17 02/26/20 16:00 BP 162/87 02/26/20 16:00 Pulse Ox 98 02/26/20 16:00 02/26/20 02/26/20 02/26/20 06:59 14:59 22:59 Intake Total 300 / 1360 720 / 720 Output Total 1600 / 1600 Balance 300 / 60 -880 / -880 Weight last 48 hrs Weight 121.563 kg Weight 121.79 kg Physical Exam Narrative: EXAM NARRATIVE: GEN: Awake, alert and oriented, no acute distress CVS: S1S2 N RS: CTA B/L except crackles over RUL Abd: Soft, nt/nd , bs+ NUTRITIONAL SERVICES HOST: no focal neuro deficits Data : 02/25/20 05:00 02/25/20 05:00 A&P Assessment and plan (1) Pneumonia due to COVID-19 virus: Continue remdesivir, to complete 5 days tomorrow Continue Decadron Ceftriaxone 1 g IV daily Azithromycin 500 mg IV day Vitamin C, zinc Supplemental oxygen as needed, stable needs Klonopin 0.25 twice daily for anxiety Change Lovenox to prophylactic dose of 40 mg daily Status: Acute (2) Diabetes: Low-dose sliding scale insulin Fingerstick glucose Diabetic diet Status: Acute Additional A&P Information dvt ppx: Lovenox 40 Code status: Full code Disposition: Home Plan for today monitor respiratory status closely, aggressive pulmonary toilet, get up out of bed, continue Decadron, continue antibiotics, continue remdesivir Continues to improve over the next 24 hours will likely discharge after last dose of remdesivir. Attestations Medical Necessity Statement*: Complains of some chest tightness today, continue consider nebulization and spirometry, likely d/c tomorrow after complets 5 days of remdisivir Coding Level of Care Code Acute Office Manager Receptionist for [facility] Diagnoses Pneumonia due to COVID-19 virus U07.1; J12.89 Diabetes E11.9
[2020-02-26] MEDS: benzonatate 100 mg Capsule PO (18:09)
--- NOTE | 2020-02-26 18:38 | PC.NURSE ---
SHIFT SUMMARY THIS PT HAS HAD NO CHANGES THIS SHIFT. PT IS JUST REQUESTING THAT SHE GO HOME SOON.
[2020-02-26 20:44] LABS: Glucose Point of Care 281 mg/dL (70-110)
[2020-02-26] MEDS: acetaminophen 325 mg Tablet 650 MG PO (21:09)
[2020-02-26] MEDS: cefTRIAXone 1,000 MG in sodium chloride 0.9% (plus) 50 ML 100 MG IV (21:10)
[2020-02-26] MEDS: diphenhydrAMINE 50 mg Capsule PO (21:10)
[2020-02-26] MEDS: pregabalin 75 mg Capsule PO (21:10)
[2020-02-26] MEDS: azithromycin 500 MG in sodium chloride 0.9% 250 ML 250 MG IV (21:11)
[2020-02-26] MEDS: dexamethasone 4 mg/mL INJ 6 MG IVP (21:15)
[2020-02-27] VITALS: BP 126/69; PULSE 72; RESP 20; TEMP 36.4; O2SAT 96
[2020-02-27 03:18] VITALS: BP 133/81; PULSE 74; RESP 24; TEMP 36.5; O2SAT 95
--- NOTE | 2020-02-27 04:00 | XR_ITS ---
WS: [id number] PORTABLE CHEST HISTORY: f/up chest infiltrates COMPARISON: 02/24/2020 Mildly thickened interstitial markings. Patchy areas of opacifications have slightly improved since t he chest CT of 02/22/2020. New area of increasing opacification at the RIGHT lung base. No pleural eff usion or pneumothorax. Cardiac size: Normal. Mediastinum/Aorta: Normal mediastinum. No osseous abnormality seen. XR/XR chest 1V portable [id number] IMPRESSION: 1. Majority of the patchy opacifications have improved. 2. RIGHT lower lobe patchy opacification is slightly more prominent as compare d to prior studies.
[2020-02-27 04:56] LABS: Basophils % 0.3 %; Hematocrit 40.3 % (37.0-47.0); Lymphocytes # 1.3 10^3/uL (0.8-4.8); Lymphocytes % 21.4 %; Mean Corpuscular HGB Conc 32.3 g/dL (30.0-36.0); Mean Corpuscular Hemoglobin 30.2 pg (28.0-34.0); Mean Corpuscular Volume 93.7 fL (81-99); Mean Platelet Volume 11.7 fL (7.4-10.4); Monocytes # 0.1 10^3/uL (0.2-0.9); Monocytes % 1.8 %; Neutrophils # 4.52 10^3/uL (1.8-7.7); Neutrophils % 75.2 %; Nucleated Red Blood Cells % 0 %; Platelet Count 258 10^3/cmm (130-400); Red Cell Distribution Width 13.2 % (12.1-15.1)
[2020-02-27 05:16] LABS: C Reactive Protein 2.5 mg/L (0.0-4.9); Ferritin 425 ng/mL (15-150)
[2020-02-27 05:18] LABS: Alanine Aminotransferase 45 U/L (0-33); Albumin Level 3.8 g/dL (3.5-5.2); Alkaline Phosphatase 60 IU/L (35-105); Anion Gap 14.6 (5-19); Aspartate Amino Transferase 16 U/L (0-32); Blood Urea Nitrogen 23 mg/dL (8-23); Carbon Dioxide 27 mmol/L (22-29); Chloride 102 mmol/L (98-107); Globulin 2.7 g/dL (1.3-4.6); Glomerular Filtration Rate 100.6 mL/min (90-130); Glucose 328 mg/dL (65-115); Osmolality Calculated 304 mOsm/kg (285-295); Potassium 4.6 mmol/L (3.5-5.1); Sodium 139 mmol/L (136-145); Total Bilirubin 0.2 mg/dL (0.15-1.2); Total Protein 6.5 g/dL (6.6-8.7)
[2020-02-27 06:53] LABS: Glucose Point of Care 289 mg/dL (70-110)
[2020-02-27 08:00] VITALS: BP 176/91; PULSE 73; PULSE 84; RESP 17; TEMP 36.5; O2SAT 95
[2020-02-27 08:13] VITALS: PULSE 77; RESP 18; O2SAT 94
[2020-02-27] MEDS: lactobacillus 1 Tablet 1 TAB PO (08:55)
[2020-02-27] MEDS: zinc gluconate 50 mg Tablet PO (08:55)
[2020-02-27] MEDS: famotidine 20 mg Tablet PO (08:55)
[2020-02-27] MEDS: ascorbic acid 500 mg Tablet PO (08:55)
[2020-02-27] MEDS: cholecalciferol (vitamin D3) 5,000 unit Tablet PO (08:55)
--- NOTE | 2020-02-27 09:07 | PC.SOCIAL ---
IMM Update Pg. 2 of IMM updated and reviewed with patient over the phone. Verbalized understanding.
[2020-02-27 11:00] LABS: Glucose Point of Care 319 mg/dL (70-110)
[2020-02-27] MEDS: enoxaparin 40 mg/0.4 mL Syringe SUBCUT (11:53)
[2020-02-27 12:00] VITALS: BP 154/78; PULSE 79; RESP 17; TEMP 36.4; O2SAT 94
[2020-02-27 15:30] VITALS: BP 154/78; PULSE 79; RESP 17; TEMP 36.4; O2SAT 94
--- NOTE | 2020-02-28 07:10 | PM.DCS ---
Discharge Providers Date of Admission: 02/22/20 19:43 Date of Discharge: February 27, 2020 Attending Provider at Admission: Kong Garcia MD Attending Provider at Discharge: Cass Hernández MD Diagnoses at Discharge Discharge Diagnosis (1) Pneumonia due to COVID-19 virus: Status: Acute (2) Diabetes: Status: Acute Reason for Visit Reason for Visit: sob/weakness/fatigue/covid + Feb 15 Hospital Course Hospital Course Brooklyn Maravilla is a 64 year old female with past medical history of diabetes ,was seen in this emergency department 4 days prior to admission for worsening symptoms of COVID-19. She had been ill for about 4 days prior to her last visit and was diagnosed at the primary care provider's office with COVID-19. She was noted to be hypoxic when she was seen in the ER she was asked to be admitted at that time but the patient refused and declined and wanted to see her primary care provider. She was however sent home with home oxygen at 2 L/min. She returned when she started to feel worse again having increasing shortness of breath, body aches, weakness, chills, subjective fever. 02 requirement now at 3lpm. CTA with no PE but showed B/L scattered GGOs. She received treatment with 5 days of Remdisivir and Dexamethasone. Lovenox initially at 1mg/kg q12h changed to ppx dosing. She responded well, feels much improved, discharged with 3lpm 02, prednisone taper over the next week and baby aspirin. F/up with PCP within 4-7 days Physical Exam Narrative: EXAM NARRATIVE: GEN: Awake, alert and oriented, no acute distress CVS: S1S2 N RS: CTA B/L Abd: Soft, nt/nd , bs+ DIE ASSEMBLER: no focal neuro deficits Discharge Data Data Completed and Pending: Completed Studies During Hospitalization Category Date Time Status CT angio chest PE protcl [id number] Stat Cat Scan 02/22/20 17:51 Completed XR chest 1V mariam ble [id number] AM LABS Exams 02/27/20 04:00 Completed XR chest 1V mariam ble [id number] Routine Exams 02/24/20 07:00 Completed XR chest 1V mariam ble [id number] Stat Exams 02/22/20 14:40 Completed Labs from last 24 hours 02/27/20 10:53 POC Glucose 319 Vitals: Last Vital Signs Temp 97.5 F L 02/27/20 15:30 Pulse 79 02/27/20 15:30 Resp 17 02/27/20 15:30 BP 154/78 02/27/20 15:30 Pulse Ox 94 02/27/20 15:30 Discharge Plan Discharge Patient Disposition: Home Condition: Stable Prescriptions: New Advair Diskus 250-50 mcg/dose Blister With Device 1 puff inhalation BID.RESPIRATORY 30 Days Qty: 1 RF: 0 dextromethorphan-guaifenesin 10-100 mg/5 mL Syrup 10 ml PO Q4H PRN (Reason: Cough) Qty: 0 RF: 0 benzonatate 100 mg Capsule 100 mg PO TID PRN (Reason: Cough) 15 Days Qty: 45 RF: 0 Spiriva with HandiHaler 18 mcg Capsule, W/Inhalation Device 18 mcg inhalation DAILY.RESPIRATORY 30 Days Qty: 30 RF: 0 prednisone 10 mg tablets,dose pack See Rx Instructions .ROUTE .COMPLEX Qty: 21 RF: 0 Protonix [address] for susp in packet 40 mg PO DAILY 30 Days Qty: 30 RF: 0 Adult Aspirin Regimen 81 mg tablet,delayed release (DR/EC) 81 mg PO DAILY Qty: 30 RF: 0 Continued glimepiride 4 mg tablet 4 mg PO BEDTIME@21 RF: 0 pregabalin 75 mg capsule 75 mg PO BEDTIME@21 RF: 0 Vitamin C 1,000 mg Tablet 2,000 - 4,000 mg PO DAILY@09 RF: 0 vitamin E 100 unit Capsule 100 unit PO DAILY@09 RF: 0 vitamin B complex Tablet 1 tab PO DAILY@09 RF: 0 zinc 50 mg Tablet 50 mg PO DAILY@09 RF: 0 Vitamin D3 125 mcg (5,000 unit) Tablet 5,000 - 10,000 unit PO DAILY@09 RF: 0 CoQ-10 100 mg Capsule 100 mg PO EVERY OTHER DAY RF: 0 Bitter Melon Gold 500 mg PO DAILY RF: 0 Gymnema 1 tab PO DAILY RF: 0 L-Glutathione 250 mg PO DAILY RF: 0 [place] Tabs 5,000 mg PO DAILY RF: 0 Quercetin 1,000 mg PO DAILY RF: 0 R-Alpha Lipoic Acid 1 tab PO DAILY RF: 0 Resveratrol Complex 500 mg PO DAILY RF: 0 Turmeric Curcumin 1,500 mg PO DAILY RF: 0 Discontinued azithromycin 250 mg tablet See Rx Instructions .ROUTE .COMPLEX Qty: 6 RF: 0 Discharge Orders: Discharge Order (Routine); Ordered 02/27/20 Ordered By: Cass Hernández Referrals: Sebastien Yanez DO [Staff Physician] - 03/05/20 11:20 am Discharge Diet: Diabetic Discharge Activity: Resume usual activity Patient Instructions: Benzonatate (By mouth), Prednisone (By mouth), Aspirin (By mouth), Pantoprazole (By mouth), Fluticasone/Salmeterol (By breathing), Tiotropium (By breathing), Viral Pneumonia (GEN), Pneumonia Stoplight Discharge Attestations Time Spent in Discharge Care*: greater than 30 min Quality Metrics Clinical Quality Measures During this hospital stay, did patient experience: None Coding Level of Care Code Acute Water/Wastewater Project Engineer for Cristal Funezd Diagnoses Pneumonia due to COVID-19 virus U07.1; J12.89 Diabetes E11.9
--- NOTE | 2020-02-28 09:41 | PC.SOCIAL ---
Spoke with the patient on the phone about the discharge information they received spoke about signs and symptoms to watch for such as; blue lips or face, fever of 104 or higher, trouble breathing or catching breath, chest pain lasting longer than 5 minute, confusion or trouble waking up. We also spoke about ways to improve the immune system, these included; eating and drinking well, eating fruits and vegetables, lean meat, low fat dairy products, keeping up with immunizations such as flu/pneumonia/shingles shots, going to all appointments and follow ups, lessening and stress. We also spoke about ways to stop or prevent the spread of the COVID 19. These included; social distancing at all times, washing hands longer than 20 seconds with a good lather, sanitizing surfaces in home and in vehicle, masking up when possible and washing any cloth masks after use and allow them to dry completely before next use, sneezing or coughing into arm, restricting company or going out in public. We spoke a little about the benefits of plasma donation. Patient stated that she is doing well. No needs no concerns and has her appointment set up for PCP. Does not want to donate plasma at this time. She does have her oxygen and has been checking it often.
== END 2020-02-27 15:30 | disposition home or self-care (01) | DRG 177 ==
LOC: ER 14:08 → MEDSURG 20:19
PROVIDERS: Family Medicine; Admitting Provider Internal Medicine; Emergency Provider Family Medicine; Visit Provider Student in an Organized Health Care Education/Training Program
DX: U07.1 COVID-19 (principal); J12.89 Other viral pneumonia; E11.9 Type 2 diabetes mellitus without complications
CPT/HCPCS: 12345; 36415; 36416; 36600; 71045; 71275; 80053; 82550; 82728; 82803; 82962; 83605; 83735; 83880; 84100; 84145; 84443; 84484; 85025; 85378; 85610; 85730; 86140; 93005; 94640; 96372; 96375; 99283; J0456; J0696; J1100; J1650; J1815; J1940; J2270; J2405; J7050; Q0163; Q9967

== ENCOUNTER → 2025-01-16 14:11 | Outpatient (BNVA) | payer MEDICARE, MEDICAID, SELFPAY | DX: E11.9 Type 2 diabetes mellitus without complications (principal); R06.02 Shortness of breath | CPT/HCPCS: 80053; 80061; 83036; 83880; 84443; 85025 ==

== ENCOUNTER 2025-01-30 13:34 | Outpatient (CLI) | payer MEDICARE, MEDICAID, SELFPAY ==
--- NOTE | 2025-01-30 14:15 | CT_ITS ---
WS: [id number] LDCT LUNG CANCER SCREENING HISTORY: screening TECHNIQUE: Axial imaging performed from the apices to 1 cm below the costophrenic angles. Coronal and sagittal reformats are submitted with axial MIP series. All CT scans at [facility] use at least one of these dose optimization techniques: automated exposure control; mA and/or kV adjustment per patient size (includes targeted exams where dose is matched to clinical indication); or iterative reconstruction. DLP: 72.59 mGy.cm DIvol: Mean CTDIvol: 1.50 (mGy) COMPARISON: 02/22/2020 Diagnostic quality: Satisfactory Lungs: Patchy areas of groundglass attenuation throughout both lungs. The extent of patchy groundglass opacification has improved since 02/22/2020. No mass. There are a few benign calcified granulomata. 5 mm noncalcified nodule LEFT lower lobe, image 165 of series 5 is is stable since 2020. Mild thickening along the fissures. Heart: Normal size heart with no pericardial effusion.. Other findings: Mild dilated pulmonary artery to 3.8 cm. Minimal atherosclerosis aorta. No mediastinal or hilar adenopathy. Small hiatal hernia. No adrenal mass. 50% anterior wedging of T12. Thoracic scoliosis. CT/CT lung screening [id number] IMPRESSION: LUNG-RADS: 2-Benign Appearance or Behavior FOLLOW UP: 12 Month: Continue annual screening with LDCT OTHER FINDINGS (S MODIFIER): None.
--- NOTE | 2025-01-30 14:15 | CT_ITS ---
WS: [id number] CT ABDOMEN AND PELVIS WITH CONTRAST HISTORY: Abdominal mass, pevlic pain TECHNIQUE: Imaging performed of the abdomen and pelvis with IV contrast. Single phase imaging of the abdomen. Coronal and sagittal reformats are submitted. All CT scans at [facility] use at least one of these dose optimization techniques: automated exposure control; mA and/or kV adjustment per patient size (includes targeted exams where dose is matched to clinical indication); or iterative reconstruction. IV CONTRAST: Omnipaque 350; 100 mL IV. Oral contrast: No DLP: 722.58 mGy.cm COMPARISON: 01/15/2006 Lower thorax: Groundglass attenuation at the lung bases. Subcentimeter pulmonary nodules at the lung bases. Additional calcified granuloma LEFT lung base. Heart is normal size. Small hiatal hernia. Liver/biliary system: Normal size with no intrahepatic dilatation. Gallbladder: Normal. No gallstones or wall thickening. No pericholecystic fluid. Pancreas: Normal size pancreas and pancreatic duct. No adjacent inflammation. Spleen: Normal size spleen. No mass or infarct. Granuloma. Adrenal glands: Normal. Right kidney: Normal RIGHT kidney. No obstruction. There is slight dilatation of the mid RIGHT ureter which may be due to peristalsis. There is no obstruction. Left kidney: Normal. Aorta: Mild atherosclerosis with no aneurysm. Lymphadenopathy: None. Free fluid: None. GI tract: Prior appendectomy. No GI tract obstruction. No colitis. Mild constipation. 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 New finding since 2005. Abdominal wall: Fat containing umbilical hernia. Pelvis: No free fluid or adenopathy within the pelvis. Prior hysterectomy. Bones: Mild increase in the lumbar lordosis. Stable anterior wedging of T12. CT/CT abdomen pelvis w con* [id number] IMPRESSION: 1. No acute abdominal or pelvic abnormalities. 2. No ascites or adenopathy. 3. Prior appendectomy. 4. Prior hysterectomy. 5. No renal obstruction. 6. 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 Typically t his is a benign condition. Could cause abdominal pain. New since 2005.
[2025-01-30] MEDS: iohexol 350 mg/mL 500 mL Btl (per mL) IV (14:20)
== END 2025-01-30 13:35 | disposition home or self-care (01) ==
LOC: RAD 13:39
DX: R19.06 Epigastric swelling, mass or lump (principal); R10.20 Pelvic and perineal pain unspecified side; F17.211 Nicotine dependence, cigarettes, in remission; R91.8 Other nonspecific abnormal finding of lung field; J84.10 Pulmonary fibrosis, unspecified; I70.0 Atherosclerosis of aorta; K44.9 Diaphragmatic hernia without obstruction or gangrene; M41.24 Other idiopathic scoliosis, thoracic region; S22.080S Wedge compression fracture of T11-T12 vertebra, sequela; X58.XXXS Exposure to other specified factors, sequela; I28.1 Aneurysm of pulmonary artery; M41.84 Other forms of scoliosis, thoracic region
CPT/HCPCS: 71271; 74177

== ENCOUNTER → 2025-02-01 13:06 | Outpatient (BNVA) | payer MEDICARE, MEDICAID, SELFPAY | PROVIDERS: Visit Provider Student in an Organized Health Care Education/Training Program | DX: R03.0 Elevated blood-pressure reading, without diagnosis of hypertension (principal) | CPT/HCPCS: 99203 ==

== ENCOUNTER 2025-02-08 11:44 | Outpatient (CLI) | payer MEDICARE, SELFPAY ==
--- NOTE | 2025-02-08 12:00 | USCV_ITS ---
Brooklyn Maravilla Age: 69 Gender: F : 1955 Exam Date: 02/08/2025 12:12 Ordering Phys: Apolonia Gifford NP Technologist: Exam Location: [facility] [place] Indication: cp sob BP: 180 / 80 HR: 78 Rhythm: Sinus Technical Quality: Adequate MEASUREMENTS (Male / Female) Normal Values 2D ECHO LV Diastolic Diameter PLAX 4.6 cm 4.2 - 5.9 / 3.9 - 5.3 cm IVS Diastolic Thickness 1.3 cm 0.6 - 1.0 / 0.6 - 0.9 cm IVS Systolic Thickness 2.0 cm LVPW Diastolic Thickness 1.4 cm 0.6 - 1.0 / 0.6 - 0.9 cm LVPW Systolic Thickness 1.4 cm LVOT Diameter 1.9 cm LV Ejection Fraction 2D Teich 68.4 % LV Ejection Fraction MOD 4C 72.4 % LV Ejection Fraction MOD 2C 72.2 % LV Ejection Fraction 2C AL 72.2 % LA Diameter 3.6 cm RA Systolic Volume 4C AL 29.1 ml RA Systolic Volume 4C MOD 28.0 ml LA Sys Volume AL 59.3 cm cubed LA Sys Volume Index AL 27.0 cm cubed/m squared Aorta at Sinotubular Diameter 2.6 cm M-MODE LA Ao Ratio MM 1.5 AV Cusp Separation MM 2.3 cm DOPPLER AV Peak Velocity 140.0 cm/s LVOT Peak Velocity 102.0 cm/s AV Area Cont Eq vti 2.6 cm squared AV Area Cont Eq pk 2.1 cm squared MV Peak Velocity 130.0 cm/s MV Area PHT 3.5 cm squared TR Peak Velocity 136.0 cm/s TR Peak Gradient 7.4 mmHg TV Peak E Velocity 101.0 cm/s PV Peak Velocity 114.0 cm/s FINDINGS Left Ventricle Normal left ventricular size and systolic function, EF 60 to 65%. No regional wall motion abnormalities are seen. Mild left ventricular hypertrophy. Grade 1 diastolic dysfunction Right Ventricle Normal right ventricular size and systolic function. Right Atrium Normal right atrial size. Left Atrium Normal left atrial size. IA Septum Grossly normal Mitral Valve Structurally normal mitral valve. Trace mitral regurgitation Aortic Valve Structurally normal aortic valve. No significant stenosis or regurgitation. Tricuspid Valve Insufficient TR jet to evaluate RVSP Pulmonic Valve Not well-visualized Pericardium Normal Aorta Normal in size IVC Appears to be normal CONCLUSIONS LV systolic function is normal with EF of 60-65%. Mild left ventricular hypertrophy Grade 1 diastolic dysfunction. Trace mitral regurgitation No comparison studies are available. Al Ivan MD (Electronically Signed) Final Date: 10 February 2025 13:59 S
== END 2025-02-08 11:45 | disposition home or self-care (01) ==
LOC: RAD 11:44
DX: R60.0 Localized edema (principal); R06.02 Shortness of breath; Z82.49 Family history of ischemic heart disease and other diseases of the circulatory system; I51.7 Cardiomegaly; I51.89 Other ill-defined heart diseases; I34.0 Nonrheumatic mitral (valve) insufficiency
CPT/HCPCS: 93306